=== PATIENT | female | born 2000 | race Caucasian/White ===

== ENCOUNTER 2019-01-16 09:51 | Emergency (ER) | payer OTHER ==
[2019-01-16 09:58] VITALS: BP 134/81; TEMP 98.5; BMI 25.0
--- NOTE | 2019-01-16 10:26 | ED.PDOC ---
General ED Provider: Dr. TERRELL OSPINA Chief Complaint: Laceration Stated Complaint: Laceration Lt wrist volar lateral aspect over distal ulnar region. Time Seen by Physician: 10:15 Mode of Arrival: Walk-In Information Source: Patient Exam Limitations: No limitations Primary Care Provider: TERRELL GAR Nursing and Triage Documentation Reviewed and Agree: Yes Does patient meet sepsis criteria?: No System Inflammatory Response Syndrome: Not Applicable Sepsis Protocol: For patient's 13 years and over: Temp is 96.8 and below OR 101 and greater Pulse >90 BPM Resp >20/minute Acutely Altered Mental Status Are patient's symptoms suggestive of a new infection, such as: -Pneumonia -Skin, Soft Tissue -Endocarditis -UTI -Bone, Joint Infection -Implantable Device -Acute Abdominal Infection -Wound Infection -Meningitis -Blood Stream Catheter Infection -Unknown Review of Systems - Review Of Systems Constitutional: Reports: No symptoms Eyes: Reports: No symptoms Ears, Nose, Mouth, Throat: Reports: No symptoms Respiratory: Reports: No symptoms Cardiac: Reports: No symptoms GI: Reports: No symptoms : Reports: No symptoms Musculoskeletal: Reports: No symptoms Skin: Reports: Other (laceration ). Denies: Bruising, Change in color, Change in hair/nails, Dryness, Lesions, Lumps, Rash, Cyanosis Neurological: Reports: No symptoms Endocrine: Reports: No symptoms Hematologic/Lymphatic: Reports: No symptoms All Other Systems: Reviewed and Negative Past Medical History - Past Medical History Previously Healthy: Yes Endocrine: Reports: None Cardiovascular: Reports: None Respiratory: Reports: None Hematological: Reports: None Gastrointestinal: Reports: None Genitourinary: Reports: None Neuro/Psych: Reports: None Musculoskeletal: Reports: None Cancer: Reports: None Last Menstrual Period: dec 29 - Surgical History General Surgical History: Reports: None - Family History Family History: Reports: None - Social History Smoking Status: Never smoker Hx Substance Use: No Alcohol Screening: None - Immunizations Tetanus Shot up to Date: No Physical Exam - Physical Exam Appearance: Well-appearing, No pain distress, Well-nourished Eyes: TOY, EOMI, Conjunctiva clear ENT: Ears normal, Nose normal, Oropharynx normal Respiratory: Airway patent, Breath sounds clear, Breath sounds equal, Respirations nonlabored Cardiovascular: RRR, Pulses normal, No rub, No murmur GI/: Soft, Nontender, No masses, Bowel sounds normal, No Organomegaly Musculoskeletal: Normal strength, ROM intact, No edema, No calf tenderness Skin: Warm (gaping laceration lt wrist volar aspect 4 cm), Dry, Normal color Neurological: Sensation intact, Motor intact, Reflexes intact, Cranial nerves intact, Alert, Oriented Psychiatric: Affect appropriate, Mood appropriate Procedures - Laceration/Wound Repair lt wrist Wound Description: Linear Wound Length (cm): 4 Wound Width: .5 Wound Depth: .5 Wound Explored: Clean Wound Irrigated: Yes Wound Prep: Saline, Hibiclens, Betadine Anesthesia: Lidocaine Wound Repaired With: Sutures Suture Size and Type: 5-0 vicryl, 4-0 prolene Number of Sutures: 6 Layer Closure?: Yes (interupted) Deep Layer Suture Size and Type: 4-0 vicryl Sterile Dressing Applied?: Yes Sling Applied?: No Critical Care Note - Critical Care Note Total Time (mins): 60 Course - Course Orders, Labs, Meds: Orders Category Date Time Status Diphth,Pertuss(Acell),Tet Vac [Boostrix] MEDS 01/16/19 10:26 Discontinued 0.5 ml IM .ONCE ONE Lidocaine HCl/Pf [Lidocaine HCl 1% Sdv] MEDS 01/16/19 10:23 Discontinued 10 ml SUBCUT ONCE STA Medications Discontinued Medications Generic Name Dose Route Start Last Admin Trade Name Keli PRN Reason Stop Dose Admin Diphtheria/Pertussis/Tetanus Vacc 0.5 ml 01/16/19 10:26 01/16/19 10:30 Boostrix IM 01/16/19 10:27 0.5 ml .ONCE ONE Administration Lidocaine HCl 10 ml 01/16/19 10:23 01/16/19 10:30 Lidocaine Hcl 1% Sdv SUBCUT 01/16/19 10:24 10 ml ONCE STA Administration Vital Signs: Temp Pulse Resp BP Pulse Ox 01/16/19 09:52 98.5 F 89 16 134/81 97 Departure - Departure Time of Disposition: 11:30 Disposition: HOME SELF-CARE Discharge Problem: Laceration of wrist, complicated Instructions: Care For Your Stitches (ED), Laceration (ED) Condition: Good Pt referred to PMD for follow-up: Yes IPMP verified?: No Additional Instructions: Wound care instructions as provided Take antibiotics Sutures out 7 days Follow up pcp for wound evaluation as needed Tylenol or advil for pain control as needed Avoid excessive or strenuous activity of lt wrist /forearm for several days until healed Allergies/Adverse Reactions: Allergies No Known Allergies Allergy (Unverified 01/16/19 09:59) Home Medications: Ambulatory Orders Cephalexin [Keflex] 500 mg PO BID #14 capsule 01/16/19 Cetirizine HCl [Zyrtec] 10 mg PO DAILY 01/16/19 Escitalopram Oxalate [Lexapro] 10 mg PO DAILY 01/16/19 Ethinyl Estradiol/Drospirenone [Khushboo 28 Tablet] 1 each PO DAILY 01/16/19
[2019-01-16] MEDS: BOOSTRIX IM ONE (10:30)
[2019-01-16] MEDS: LIDOCAINE HCL 1% SDV SUBCUT STA (10:30)
== END 2019-01-16 12:03 | disposition home or self-care (01) ==
LOC: ED 09:51
DX: S61.512A Laceration without foreign body of left wrist, initial encounter (principal); W45.8XXA Other foreign body or object entering through skin, initial encounter
CPT/HCPCS: 90471; 90715; 96372; 99283

== ENCOUNTER 2019-06-24 21:01 | Emergency (ER) ==
[2019-06-24] MEDS ORDERED: SODIUM CHLORIDE 1,000 ML IV STA (21:11)
[2019-06-24 21:15] VITALS: BP 149/92; TEMP 99.5; BMI 27.9
--- NOTE | 2019-06-24 21:15 | ED.PDOC ---
General ED Provider: Dr. RANJAN CHAVES Chief Complaint: Shortness of Air Stated Complaint: Sharp intermitent chest pain lasting 30 mins, for the last 3 days. States she also gets short of breath with mild activity. Time Seen by Physician: 21:12 Information Source: Patient, Family Primary Care Provider: TERRELL GAR Nursing and Triage Documentation Reviewed and Agree: Yes Does patient meet sepsis criteria?: No System Inflammatory Response Syndrome: Not Applicable Sepsis Protocol: For patient's 13 years and over: Temp is 96.8 and below OR 101 and greater Pulse >90 BPM Resp >20/minute Acutely Altered Mental Status Are patient's symptoms suggestive of a new infection, such as: -Pneumonia -Skin, Soft Tissue -Endocarditis -UTI -Bone, Joint Infection -Implantable Device -Acute Abdominal Infection -Wound Infection -Meningitis -Blood Stream Catheter Infection -Unknown Cardiovascular Complaint Exam - Chest Pain Complaint/Exam Onset: Gradual Duration: 3 days Symptoms Are: Still present Timing: Intermittent (lasting 30 mins) Initial Severity: Moderate Current Severity: Moderate Location: Reports: Midsternal Pain Radiates: Reports: Epigastrium Character: Reports: Sharp, Stabbing Aggravating: Reports: Exertion Alleviating: Reports: None Associated Signs and Symptoms: Reports: Short of air. Denies: Diaphoresis, Nausea, Vomiting, Fever, Palpitations, Cough, Hemoptysis, Back pain, Abdominal pain, Dizziness, Calf pain, Calf swelling Related History: Reports: Similar episode (a while back ) Related Surgical History: Reports: None History of Healthcare-Acquired Pneumonia: Reports: No Pulmonary Embolism Risk Factors: Reports: OCs/Estrogen Prior Care for this Complaint: Yes (3 years ago- Had palpitations and anxiety. ) Recent Stress Test: No Recent Echo/LV Function: No JVD Present: No Subcutaneous Emphysema Present: No Diminshed Breath Sounds: No Reproducible Chest Wall Pain: No Bilateral Pulses Present: No Unequal Pulses Noted: No If Risk Factors for AMI/ACS Consider: EKG, Cardiac Enzymes If Risk Factors for PE Consider: Chest CT with contrast Classified Advertising Clerk Consulted: No Differential Diagnoses: ACS, Pulmonary Edema, Pulmonary Embolism Review of Systems - Review Of Systems Constitutional: Reports: No symptoms Eyes: Reports: No symptoms Ears, Nose, Mouth, Throat: Reports: No symptoms Respiratory: Reports: Short of air Cardiac: Reports: Chest pain GI: Reports: No symptoms : Reports: No symptoms Musculoskeletal: Reports: No symptoms Skin: Reports: No symptoms Neurological: Reports: No symptoms Endocrine: Reports: No symptoms Hematologic/Lymphatic: Reports: No symptoms All Other Systems: Reviewed and Negative Past Medical History - Past Medical History Previously Healthy: Yes Endocrine: Reports: None Cardiovascular: Reports: None Respiratory: Reports: None Hematological: Reports: None Gastrointestinal: Reports: None Genitourinary: Reports: None Neuro/Psych: Reports: None Musculoskeletal: Reports: None Cancer: Reports: None - Surgical History General Surgical History: Reports: None - Family History Family History: Reports: None - Social History Smoking Status: Never smoker Hx Substance Use: No Alcohol Screening: None Physical Exam - Physical Exam Appearance: Well-appearing Pain Distress: Moderate Eyes: Conjunctiva clear Neck: Supple Respiratory: Airway patent, Breath sounds clear, Breath sounds equal, Respirations nonlabored Cardiovascular: RRR, Pulses normal, No rub, No murmur GI/: Soft, Nontender, No masses, Bowel sounds normal, No Organomegaly Musculoskeletal: Normal strength, ROM intact, No edema, No calf tenderness Skin: Warm, Dry Neurological: Alert, Oriented Psychiatric: Anxious Interpretation - Radiology Interpretation Radiology Interpretation By: Radiologist Radiology Results: Negative Exam Interpreted: CT Scan (PE protochol ) - EKG Interpretation Time of EKG #1: 21:19 Rate: Normal Rhythm: Sinus Ectopy: None Roseboom: NL ST Segment: Normal Interpretation: normal sinus with sinus arrhythmaia Critical Care Note - Critical Care Note Total Time (mins): 35 Course - Course Hematology/Chemistry: 06/24/19 21:20 06/24/19 21:20 Orders, Labs, Meds: Lab Review 06/24/19 06/24/19 06/24/19 21:20 21:20 21:20 WBC 6.47 RBC 4.84 Hgb 14.0 Hct 41.4 MCV 85.5 MCH 28.9 MCHC 33.8 RDW Coeff of Katja 12.0 Plt Count 258 Immature Gran % (Auto) 0.2 Neut % (Auto) 50.3 Lymph % (Auto) 34.2 Will % (Auto) 12.1 H Eos % (Auto) 2.6 Baso % (Auto) 0.6 Immature Gran # (Auto) 0.0 Neut # (Auto) 3.3 Lymph # (Auto) 2.2 Will # (Auto) 0.8 Eos # (Auto) 0.2 Baso # (Auto) 0.0 D-Dimer (Manual) 199.72 Sodium 141.3 Potassium 3.93 Chloride 102.8 Carbon Dioxide 28.3 Anion Gap 14.13 BUN 11.5 Creatinine 0.85 Estimated GFR (MDRD) 84.00 BUN/Creatinine Ratio 13.52 Glucose 84.8 Calcium 9.52 Total Bilirubin 0.35 AST 47.6 H ALT 40.8 H Alkaline Phosphatase 147.4 H Total Creatine Kinase 63.0 Troponin I < 0.012 Total Protein 7.45 Albumin 4.23 Globulin 3.22 Albumin/Globulin Ratio 1.31 Serum , Qual 06/24/19 21:20 WBC RBC Hgb Hct MCV MCH MCHC RDW Coeff of Katja Plt Count Immature Gran % (Auto) Neut % (Auto) Lymph % (Auto) Will % (Auto) Eos % (Auto) Baso % (Auto) Immature Gran # (Auto) Neut # (Auto) Lymph # (Auto) Will # (Auto) Eos # (Auto) Baso # (Auto) D-Dimer (Manual) Sodium Potassium Chloride Carbon Dioxide Anion Gap BUN Creatinine Estimated GFR (MDRD) BUN/Creatinine Ratio Glucose Calcium Total Bilirubin AST ALT Alkaline Phosphatase Total Creatine Kinase Troponin I Total Protein Albumin Globulin Albumin/Globulin Ratio Serum , Qual Negative Orders Category Date Time Status EKG-(ED ONLY) Stat CARDIO 06/24/19 21:11 Completed NPO REMINDER: IMAGING ONCE CARE 06/24/19 21:51 Active ED MARINE DIESEL TECHNICIAN APPLIED .ONCE EMERGENCY 06/24/19 21:11 Active ED IV/MEDIPORT/POWERPORT .ONCE EMERGENCY 06/24/19 21:11 Active CBC W/ AUTO DIFF Stat LAB 06/24/19 21:20 Completed COMPREHENSIVE METABOLIC PANEL Stat LAB 06/24/19 21:20 Completed CREATINE KINASE Stat LAB 06/24/19 21:20 Completed D-DIMER Stat LAB 06/24/19 21:20 Completed SERUM TEST [SERUM ] Stat LAB 06/24/19 21:20 Completed TROPONIN I Stat LAB 06/24/19 21:20 Completed 0.9 % Sodium Chloride [Saline Flush] MEDS 06/24/19 21:11 Discontinued 1 syr IVF PRN PRN Esomeprazole Sodium [Nexium IV] MEDS 06/24/19 23:17 Discontinued 40 mg IVP ONCE STA Lorazepam [Ativan] MEDS 06/24/19 23:31 Discontinued 1 mg PO ONCE STA Mag-Al Plus//Lidocaine [Gi Cocktail] MEDS 06/24/19 23:15 Discontinued 30 ml PO ONCE STA Sodium Chloride 0.9% [Sodium Chloride] 1,000 ml MEDS 06/24/19 21:11 Discontinued IV 125 mls/hr CTA ANGIO CHEST Stat RADS 06/24/19 21:50 Completed Medications Discontinued Medications Generic Name Dose Route Start Last Admin Trade Name Freq PRN Reason Stop Dose Admin Al Hydroxide/Mg Hydroxide 30 ml 06/24/19 23:15 06/24/19 23:21 Gi Cocktail PO 06/24/19 23:16 30 ml ONCE STA Administration Esomeprazole Magnesium 40 mg 06/24/19 23:17 06/24/19 23:22 Nexium Iv IVP 06/24/19 23:18 40 mg ONCE STA Administration Sodium Chloride 1,000 mls @ 125 mls/hr 06/24/19 21:11 06/24/19 21:56 Sodium Chloride IV 06/25/19 05:10 125 mls/hr .Q8H STA Administration Lorazepam 1 mg 06/24/19 23:31 06/24/19 23:40 Ativan PO 06/24/19 23:32 1 mg ONCE STA Administration Sodium Chloride 1 syr 06/24/19 21:11 06/24/19 23:27 Saline Flush IVF 1 syr PRN PRN Administration To flush IV Vital Signs: Temp Pulse Resp BP Pulse Ox 06/24/19 21:05 99.5 F 95 H 20 149/92 H 100 ERLIN Risk Score Age >/= 65: No >/= 3 CAD Risk Factors: No Known CAD (Stenosis >/= 50%): No ASA Use in Past 7 Days: No Severe Angina (>/= 2 episodes in 24 hours): No EKG ST Changes >/= 0.5mm: No Postive Cardiac Marker: No ERLIN Total Score: 0 ERLIN Risk Score: Risk Score Odds of by 30D 0 0.1 (0.1-0.2) 1 0.3 (0.2-0.3) 2 0.4 (0.3-0.5) 3 0.7 (0.6-0.9) 4 1.2 (1.0-1.5) 5 2.2 (1.9-2.6) 6 3.0 (2.5-3.6) 7 4.8 (3.8-6.1) Departure - Departure Time of Disposition: 23:15 Disposition: HOME SELF-CARE Discharge Problem: Chest pain due to GERD Instructions: Chest Pain (ED), Gastroesophageal Reflux Disease (ED) Condition: Stable Pt referred to PMD for follow-up: Yes IPMP verified?: No Additional Instructions: take Medications as prescribed Follow with PCP in 3 days Prescriptions: Omeprazole Magnesium [Prilosec Otc] 20 mg PO DAILY #30 tablet. Allergies/Adverse Reactions: Allergies No Known Allergies Allergy (Unverified 01/16/19 09:59) Home Medications: Ambulatory Orders Cetirizine HCl [Zyrtec] 10 mg PO DAILY 01/16/19 Escitalopram Oxalate [Lexapro] 10 mg PO DAILY 01/16/19 Fluticasone Propionate [Flonase] 1 spray NS DAILY 06/24/19 Omeprazole Magnesium [Prilosec Otc] 20 mg PO DAILY #30 tablet. 06/24/19 Disposition Discussed With: Patient, Family
--- NOTE | 2019-06-24 23:03 | CT ---
EXAM: CT pulmonary angiogram. HISTORY: PROCEDURE: After the intravenous injection of contrast a CT pulmonary angiogram was performed with c ontiguous axial CT images of the chest with multiplanar reformats, MIP images and 3-D reformats. FINDINGS: There is normal enhancement of the pulmonary arteries with no evidence of pulmonary embol ism. The heart is within normal limits in size. No pericardial effusion. The thoracic aorta is wit hin normal limits in diameter. No infiltrate or consolidation. No pneumothorax. The bones and soft tissues are unremarkable. Impression: Negative CT pulmonary angiogram.
[2019-06-24] MEDS ORDERED: GI COCKTAIL PO STA (23:15)
[2019-06-24] MEDS ORDERED: NEXIUM IV IVP STA (23:17)
[2019-06-24] MEDS ORDERED: ATIVAN PO STA (23:31)
== END 2019-06-25 00:07 | disposition home or self-care (01) ==
LOC: ED 21:01
DX: R07.89 Other chest pain (principal); K21.9 Gastro-esophageal reflux disease without esophagitis; R06.02 Shortness of breath
CPT/HCPCS: 36415; 80053; 82550; 84484; 84703; 85025; 85379; 93005; 93010; 96361; 96374; 99283